=== PATIENT | male | born 1945 | race Caucasian/White ===

== ENCOUNTER 2022-05-28 16:24 | Inpatient (IN) | payer MEDICARE, BC ==
[2022-05-28] MEDS ORDERED: Cefepime 2 GM VIAL ONE (17:11)
[2022-05-28] MEDS ORDERED: Clindamycin/D5W 900 mg/50 ml Premix Bag ONE (17:12)
[2022-05-28 17:14] LABS: #Eosinphils 0.1 thou/uL (0.0-0.7); #Lymphocytes 1.4 thou/uL (1.20-3.40); #Monocytes 0.9 thou/uL (0.11-0.59); #Neutrophils 6.2 thou/uL (1.40-6.50); %Basophils 0.2 % (0.0-1.0); %Eosinophils 1.2 % (0.0-10.0); %Lymphocytes 16.1 % (21.0-51.0); %Monocytes 10.9 % (0.0-10.0); %Neutrophils 71.7 % (42.0-75.0); Hemoglobin 15.5 g/dL (14.0-18.0); Mean Corpuscular HGB CONC 33.8 g/dL (32.0-36.0); Mean Corpuscular Hemoglobin 32.1 pg (27.0-31.0); Mean Platelet Volume 8.7 fL (7.4-10.4); Platelet Count 154 thou/uL (130-400); RBC Distribution Width 13.1 % (11.5-14.5); Red Blood Cell (RBC) Count 4.83 mill/uL (4.70-6.10); White Blood Cell (WBC) Count 8.6 thou/uL (4.8-10.8)
[2022-05-28] MEDS ORDERED: VANCOMYCIN 2 GRAM/500 ML BAG 2 GM in Premix Bag 1 BAG IVPB SCH (17:30)
[2022-05-28 17:35] LABS: ALT (SGPT) 13 U/L (8-55); AST (SGOT) 13 U/L (5-34); Albumin 3.9 g/dL (3.4-4.8); Alkaline Phosphatase 40 U/L (40-110); Anion Gap 15 mmol/L (10-20); BUN (Urea Nitrogen) 12 mg/dL (8.4-25.7); Bilirubin, Total 1.5 mg/dL (0.2-1.2); Calc. Creatinine Clearance 0 mL/min (70-130); Calcium 9.1 mg/dL (7.8-10.44); Carbon Dioxide 26 mmol/L (23-31); Chloride 101 mmol/L (98-107); Estimated GFR 61; Globulin 2.9 g/dL (2.4-3.5); Glucose 132 mg/dL (83-110); Potassium 3.6 mmol/L (3.5-5.1); Protein, Total 6.8 g/dL (5.8-8.1); Sodium 138 mmol/L (136-145)
[2022-05-28] MEDS ORDERED: Lidocaine 1% MPF 2 ML VIAL ONE (17:55)
[2022-05-28] MEDS ORDERED: Acetaminophen 325 MG TAB PO PRN (20:30)
[2022-05-28] MEDS ORDERED: HYDROcodone/Acetaminophen 5/325 mg Tablet PO PRN (20:30)
[2022-05-28] MEDS ORDERED: Lorazepam 1 MG TAB PO PRN (20:30)
[2022-05-28] MEDS ORDERED: Electrolyte Replacement Protocol 1 EACH FS PRN (20:30)
[2022-05-28] MEDS ORDERED: Senokot S 8.6-50 MG TAB PO PRN (20:30)
[2022-05-28] MEDS ORDERED: Ondansetron ODT 4 MG TAB PO PRN (20:30)
[2022-05-28] MEDS ORDERED: Bisacodyl 5 MG TAB PO PRN (20:30)
[2022-05-28] MEDS ORDERED: Ondansetron PF 4 MG/2 ML Vial IVP PRN (20:30)
[2022-05-28 21:00] LABS: Lactic Acid 1.8 mmol/L (0.5-2.2)
[2022-05-28] MEDS ORDERED: Vancomycin 1 GM in Premix Bag 1 BAG IVPB SCH (21:00)
[2022-05-28 21:08] VITALS: BMI 29.3
[2022-05-28] MEDS: Thiamine HCl 200 MG/2 ML VIAL SLOW IVP SCH (21:32)
[2022-05-28] MEDS ORDERED: Pregabalin 75 MG CAP PO SCH (22:30)
[2022-05-28] MEDS ORDERED: Dronedarone HCl 400 MG TAB PO SCH (22:30)
[2022-05-28 22:43] LABS: Bilirubin, Direct 0.5 mg/dL (0.1-0.3); Magnesium 2.4 mg/dL (1.6-2.6); Phosphorus 2.9 mg/dL (2.3-4.7)
[2022-05-29] MEDS: Cefepime 1 GM in Sodium Chloride 0.9% 100 ML IVPB SCH ×2 (04:29→16:19)
[2022-05-29 07:02] LABS: #Eosinphils 0.1 thou/uL (0.0-0.7); #Monocytes 0.9 thou/uL (0.11-0.59); #Neutrophils 4.8 thou/uL (1.40-6.50); %Basophils 0.3 % (0.0-1.0); %Eosinophils 2.1 % (0.0-10.0); %Lymphocytes 14.1 % (21.0-51.0); %Monocytes 12.7 % (0.0-10.0); %Neutrophils 70.7 % (42.0-75.0); Hemoglobin 14.4 g/dL (14.0-18.0); Mean Corpuscular HGB CONC 33.8 g/dL (32.0-36.0); Mean Corpuscular Hemoglobin 32.4 pg (27.0-31.0); Mean Platelet Volume 8.9 fL (7.4-10.4); Platelet Count 148 thou/uL (130-400); RBC Distribution Width 12.9 % (11.5-14.5); Red Blood Cell (RBC) Count 4.45 mill/uL (4.70-6.10); White Blood Cell (WBC) Count 6.8 thou/uL (4.8-10.8)
[2022-05-29 07:36] LABS: ALT (SGPT) 10 U/L (8-55); AST (SGOT) 12 U/L (5-34); Albumin 3.2 g/dL (3.4-4.8); Alkaline Phosphatase 34 U/L (40-110); Anion Gap 14 mmol/L (10-20); BUN (Urea Nitrogen) 10 mg/dL (8.4-25.7); Bilirubin, Total 1.3 mg/dL (0.2-1.2); Calc. Creatinine Clearance 75 mL/min (70-130); Calcium 8.2 mg/dL (7.8-10.44); Carbon Dioxide 21 mmol/L (23-31); Chloride 106 mmol/L (98-107); Estimated GFR 71; Globulin 2.4 g/dL (2.4-3.5); Glucose 94 mg/dL (83-110); Potassium 3.8 mmol/L (3.5-5.1); Protein, Total 5.6 g/dL (5.8-8.1); Sodium 137 mmol/L (136-145)
[2022-05-29] MEDS: Folic Acid 1 MG TAB PO SCH (08:39)
[2022-05-29] MEDS: Pregabalin 75 MG CAP PO SCH ×2 (08:39→20:52)
[2022-05-29] MEDS: Lisinopril 20 MG TAB PO SCH (08:40)
[2022-05-29] MEDS: Multivit, Therapeutic 1 TAB PO SCH (08:40)
[2022-05-29] MEDS: Amlodipine 5 MG TAB PO SCH (08:40)
[2022-05-29] MEDS: Aspirin 81 mg Enteric Coated Tablet PO SCH (08:40)
[2022-05-29] MEDS: Dronedarone HCl 400 MG TAB PO SCH ×2 (08:40→16:19)
[2022-05-29] MEDS ORDERED: Clopidogrel Bisulfate 75 MG TAB PO SCH (09:00)
[2022-05-29] MEDS ORDERED: Lidocaine 1% (PF) 30 ML VIAL SC SCH (09:45)
[2022-05-29 12:50] LABS: Synovial Fluid, Protein 3.2 g/dL (Not Available)
[2022-05-29 13:27] LABS: WBC/Nucleated-Auto (BF) 8400 /cu.mm
[2022-05-29 13:30] LABS: BF Color Yellow; Body Fluid Source Synovial Fluid; Clarity Cloudy/Turbid (Clear); Tube # EDTA
[2022-05-29 13:32] LABS: BF Segmented Neutrophils 58 %; Cell Count Non Hematic 39 %; Lymphocytes 3 %
[2022-05-29] MEDS: VANCOMYCIN 1.25 GM/250 ML BAG 1.25 GM in Premix Bag 1 BAG IVPB SCH (17:58)
[2022-05-29] MEDS ORDERED: Lorazepam 1 MG TAB PO PRN (20:31)
[2022-05-29] MEDS: Thiamine HCl 200 MG/2 ML VIAL SLOW IVP SCH (20:52)
[2022-05-30] MEDS: Cefepime 1 GM in Sodium Chloride 0.9% 100 ML IVPB SCH ×2 (05:47→17:13)
[2022-05-30] MEDS: Pregabalin 75 MG CAP PO SCH ×2 (09:10→21:07)
[2022-05-30] MEDS: Dronedarone HCl 400 MG TAB PO SCH ×2 (09:10→17:12)
[2022-05-30] MEDS: Folic Acid 1 MG TAB PO SCH (09:11)
[2022-05-30] MEDS: Lisinopril 20 MG TAB PO SCH (09:11)
[2022-05-30] MEDS: Aspirin 81 mg Enteric Coated Tablet PO SCH (09:11)
[2022-05-30] MEDS: Multivit, Therapeutic 1 TAB PO SCH (09:11)
[2022-05-30] MEDS: Amlodipine 5 MG TAB PO SCH (09:12)
[2022-05-30 18:23] LABS: Vancomycin, Trough 4.7 ug/mL
[2022-05-30] MEDS: VANCOMYCIN 1.25 GM/250 ML BAG 1.25 GM in Premix Bag 1 BAG IVPB SCH (18:52)
[2022-05-30] MEDS: Vancomycin 1.5 GRAM/300 ML BAG 1.5 GM in Premix Bag 1 BAG IVPB SCH (19:12)
[2022-05-30] MEDS ORDERED: Lorazepam 1 MG TAB PO PRN (20:31)
[2022-05-30] MEDS: Thiamine HCl 200 MG/2 ML VIAL SLOW IVP SCH (21:33)
[2022-05-31] MEDS: Cefepime 1 GM in Sodium Chloride 0.9% 100 ML IVPB SCH (05:18)
[2022-05-31] MEDS: Vancomycin 1.5 GRAM/300 ML BAG 1.5 GM in Premix Bag 1 BAG IVPB SCH (06:20)
[2022-05-31] MEDS: Dronedarone HCl 400 MG TAB PO SCH (08:16)
[2022-05-31] MEDS: Aspirin 81 mg Enteric Coated Tablet PO SCH (08:16)
[2022-05-31] MEDS: Lisinopril 20 MG TAB PO SCH (08:16)
[2022-05-31] MEDS: Amlodipine 5 MG TAB PO SCH (08:16)
[2022-05-31] MEDS: Pregabalin 75 MG CAP PO SCH (08:17)
[2022-05-31] MEDS: Folic Acid 1 MG TAB PO SCH (08:17)
[2022-05-31] MEDS: Multivit, Therapeutic 1 TAB PO SCH (08:17)
[2022-05-31] MEDS ORDERED: Lidocaine 1% (PF) 30 ML VIAL SC SCH (09:00)
[2022-05-31 12:39] VITALS: BP 146/73; TEMP 98.2
[2022-05-31] MEDS ORDERED: Lorazepam 0.5 MG TAB PO PRN (20:31)
[2022-05-31] MEDS ORDERED: Thiamine 100 MG TAB PO SCH (20:45)
== END 2022-05-31 13:04 | disposition home or self-care (01) | DRG 565 ==
LOC: ERS 16:24 → T4-B 18:07
PROVIDERS: ADMIT Internal Medicine; ATTEND Internal Medicine
PROC: 0R9M3ZZ Drainage of Left Elbow Joint, Percutaneous Approach (ICD-10-PCS; principal; 2022-05-29)
PROC: 0R9M3ZZ Drainage of Left Elbow Joint, Percutaneous Approach (ICD-10-PCS; 2022-05-31)
DX: M25.422 Effusion, left elbow (principal); E87.2 Acidosis; L03.114 Cellulitis of left upper limb; I10 Essential (primary) hypertension; Z96.653 Presence of artificial knee joint, bilateral; F17.210 Nicotine dependence, cigarettes, uncomplicated; I48.91 Unspecified atrial fibrillation; M10.9 Gout, unspecified; G50.0 Trigeminal neuralgia; K22.70 Barrett's esophagus without dysplasia; F10.10 Alcohol abuse, uncomplicated; Z79.82 Long term (current) use of aspirin; Z79.899 Other long term (current) drug therapy
CPT/HCPCS: 36415; 80053; 80202; 82248; 82945; 83605; 83735; 84100; 84157; 84560; 85025; 85060; 85652; 86140; 87040; 87070; 87205; 89051; 89060; J0692; J2001; J3370; J3411; J3490; U0003; U0005